=== PATIENT | male | born 1995 | race Caucasian/White ===

== ENCOUNTER 2024-12-26 06:24 | Day surgery (SDC) | payer OTHER ==
[2024-12-26] MEDS ORDERED: Lactated Ringers 1,000 ML IV ONE (06:31)
[2024-12-26 06:38] VITALS: RESP 18
[2024-12-26] MEDS ORDERED: propofoL IV ONE ×2 (07:35→07:43)
[2024-12-26 08:19] VITALS: O2SAT 97
[2024-12-26 08:29] VITALS: BP 112/69; PULSE 57; TEMP 97.4
--- NOTE | 2024-12-29 08:29 | OP ---
SURGERY DATE/TIME: 12/26/2024 [id number] PREOPERATIVE DIAGNOSES: Constipation, diarrhea, and rectal bleeding. POSTOPERATIVE DIAGNOSIS: Normal colon. PROCEDURE: Colonoscopy. SURGEON: Herman Kerr MD ANESTHESIA: Medication given by the anesthesia department. INDICATIONS: The patient is a 29-year-old white male patient who has had few years of complaints of abdominal pain with constipation and at times diarrhea. He reports recently he has had some rectal bleeding. The patient was felt to need to have endoscopic evaluation. He was apprised of the risks of the procedure including risks of perforation, phlebitis, untoward reaction to medication, bleeding, and missed lesions. The patient verbalized understanding and desired to have the procedure performed. DESCRIPTION OF PROCEDURE: The patient was given medication by the anesthesia department. He had continuous pulse oximetry, ECG monitoring, and intermittent blood pressure monitoring during the examination. He was placed in left lateral decubitus position. Digital rectal examination was performed and revealed normal anal sphincter tone, no masses, and a normal prostate. The flexible Olympus videocolonoscope was used to intubate the rectum. A view of the colon was developed sequentially to the cecum including a short distance into the terminal ileum. Upon insertion and withdrawal, including retroflexed view of the rectum, no mucosal lesions were encountered. The scope was removed. Patient tolerated the procedure well and sent back to outpatient recovery in good condition. The prep was noted to be fair to good.
== END 2024-12-26 08:43 | disposition home or self-care (01) ==
LOC: SDC 06:24
PROVIDERS: ATTEND Family Medicine
DX: K59.00 Constipation, unspecified (principal); R19.7 Diarrhea, unspecified; K62.5 Hemorrhage of anus and rectum